=== PATIENT | male | born 1970 | race American Indian/Alaskan Native ===

== ENCOUNTER 2021-09-10 07:10 | Day surgery (SDC) | payer BC ==
[~2021-09-10 07:10] MED LIST: SODIUM CHLORIDE 0.9% 1000 ML 1,000 ML IV SCH
--- NOTE | 2021-09-10 08:36 | Anesthesia Consultation ---
Anesthesia Consult and Med Hx Date of service: 09/10/21 - Airway Anesthetic Teeth Evaluation: Good ROM Head & Neck: Adequate Mental/Hyoid Distance: Inadequate Mallampati Class: Class II Intubation Access Assessment: Probably Good - Pulmonary Exam CTA: Yes - Pre-Operative Health Status ASA Pre-Surgery Classification: ASA2 Proposed Anesthetic Plan: MAC - Pulmonary Hx Smoking: No Hx Sleep Apnea: No (Snores) - Cardiovascular System Hx Hypertension: Yes Hx Heart Attack/AMI: No Hx Angina: No - Central Nervous System Hx Neuromuscular Disorder: No Hx Seizures: No Hx Psychiatric Problems: No - Gastrointestinal Hx Ulcer: No Hx Gastroesophageal Reflux Disease: No - Endocrine Hx Renal Disease: Yes (Chronic Kidney Disease) Hx End Stage Renal Disease: No Hx Liver Disease: No Hx Insulin Dependent Diabetes: No Hx Non-Insulin Dependent Diabetes: No Hx Thyroid Disease: No - Hematic Hx Anemia: No - Other Systems Hx Alcohol Use: Yes Hx Substance Use: No Hx Obesity: Yes (BMI 34.2kg) - Additional Comments Anesthesia Medical History Comments: Patient denied hx. of anesthesia related complication
--- NOTE | 2021-09-10 08:37 | Anesthesia Day of Surgery ---
Anesthesia Day of Surgery - Day of Surgery Patient Examined: Yes Patient H&P Reviewed: Yes Patient is NPO: Yes Beta Blockers: No Cardiac Clearance: No Pulmonary Clearance: No
[2021-09-10] MEDS ORDERED: LIDOCAINE MPF (2%) 20 MG/1 ML VIAL 5 ML ONE (08:38)
[2021-09-10] MEDS ORDERED: propofoL 200 MG/20 ML VIAL IV ONE ×2 (08:39→08:49)
--- NOTE | 2021-09-10 09:18 | Procedure Note ---
Date of procedure: 09/10/21 Pre-op diagnosis: Colon Polyp Screening Post-op diagnosis: other (Two,Medium Sized Colon Polyps removed by Hot,Snare Polypectomy and retrieved/ Moderate, Transverse and Proximal colon Diverticuli, Minor,Internal Hemorrhoids and Normal Terminal,Ileal Mucosa) Procedure: Colonoscopy with Hot Snare Polypectomy [place] [facility] [place]: JESSICA CARMEN Estimated blood loss: minimal Pathology: list Specimen disposition: to lab Condition: stable Disposition: same day (Avoid aspirin and NSAID for 5 days; othewise resume previous medication. Encourage fiber intake and F/U in 1 to 2 weeks ([phone]).)
--- NOTE | 2021-09-10 09:27 | Operative Report ---
DATE OF SURGERY: 09/10/2021 PROCEDURE: Colonoscopy with hot snare polypectomy. INDICATIONS: This is a 51-year-old -[place] gentleman with an underlying history of hypertension, hyperlipidemia, who does not give a family history of cancer, but because of his age, he had a colonoscopy done as part of colon polyp screening. DESCRIPTION OF PROCEDURE: Procedure was done after getting informed consent with MAC anesthesia. Initial rectal examination was unremarkable. The instrument was passed through the rectum onto the cecum, which was identified with ileocecal valve and appendiceal orifice. Visualization was fair to good. The cecum was also visualized on the retroverted view. The scope was withdrawn to the hepatic flexure and reintroduced. The terminal ileum was intubated, showed normal mucosa. There were a few scattered diverticula noted in the proximal colon involving the cecum and descending colon. In the mid transverse colon, there were 2 polyps noted, one was about 14-15 mm in diameter. This was removed by hot snare polypectomy and retrieved using the cold biopsy, snare, the other one was about 12 mm in diameter, which was also removed by hot snare polypectomy and suctioned into the trap. There was moderate diverticular disease noted in the transverse colon. The left colon showed normal mucosa and the rectum showed some minor internal hemorrhoid on the retroverted view. There was minimal bleeding associated with the procedure. No complications associated with the procedure. ASSESSMENT: Colon polyp screening. Two colon polyps noted in the transverse colon that were removed by hot snare polypectomy and retrieved. Moderate transverse colon diverticula, minor internal hemorrhoid. Normal terminal ileal mucosa. PLAN: To have the patient avoid aspirin and aspirin-related products for the next 5 days, otherwise resume previous medication. Encouraged the patient to take fiber supplements and follow up in the office in 2-3 weeks' time. Procedure was done in the GI lab with assistance of the GI lab team, which included the GI nurse, the automation control technician and with assistance of anesthesia. TID: [id number] RECEIPT: [id number] ROBEL/JEWELS
--- NOTE | 2021-09-10 09:37 | Post Anesthesia Evaluation ---
- Post Anesthesia Evaluation Patient Participated: Yes Airway Patent: Yes Stable Respiratory Function: Yes Nausea/Vomiting: No Temp > 96.8F: Yes Pain Manageable: Yes Adequeate Hydration: Yes Anesthesia Complications: No
[2021-09-10 10:31] VITALS: BP 122/70
== END 2021-09-10 09:45 | disposition home or self-care (01) ==
LOC: GIO 07:10
DX: Z12.11 Encounter for screening for malignant neoplasm of colon (principal); K57.30 Diverticulosis of large intestine without perforation or abscess without bleeding; K64.8 Other hemorrhoids; D12.3 Benign neoplasm of transverse colon; I12.9 Hypertensive chronic kidney disease with stage 1 through stage 4 chronic kidney disease, or unspecified chronic kidney disease; N18.9 Chronic kidney disease, unspecified; E66.9 Obesity, unspecified; E78.00 Pure hypercholesterolemia, unspecified; Z79.899 Other long term (current) drug therapy; Z72.89 Other problems related to lifestyle; Z68.34 Body mass index [BMI] 34.0-34.9, adult
CPT/HCPCS: 45385; 88305; J2704; J7030